=== PATIENT | female | born 1955 | race Caucasian/White ===

== ENCOUNTER → 2023-04-28 09:42 | Outpatient (CLI) | payer MEDICARE, SELFPAY ==
--- NOTE | ~2023-04-28 | MR_ITS ---
EXAMINATION: MR foot RT wo/w con DATE: 04/28/2023 10:37 and 05/03/2023 INDICATION: Lesion of the plantar nerve with pain between the third and fourth toes after walking on treadmill. TECHNIQUE: Magnetic resonance imaging (MRI) of the right fore/mid foot was performed without and with 12 mL Multihance intravenous contrast on 04/28/2023. Sequences included sagittal T1-weighted FSE, sag ittal fluid sensitive FSE STIR, coronal PD-weighted FS FSE, coronal T1-weighted FSE, axial PD-weighte d FS FSE, and axial PD-weighted FSE. The patient was requested to return for additional images of the mid and hindfoot which was performed without and with 12 mL Multihance intravenous contrast on 2022. Sequences included axial, sagittal and coronal T1-weighted FSE and T2-weighted FS FSE, axial T1 -weighted FS FSE and postcontrast axial, sagittal and coronal T1-weighted FS FSE. COMPARISON: None FINDINGS: Bone alignment is normal. No fracture, reactive edema or pathologic marrow replacing process. Joint s paces appear normal no joint effusions. Very small enhancing lesion with low signal intensity likely sclerotic margins at the plantar aspect of the head of the third metatarsal most likely a small erosi on with differential including focus of osteonecrosis. There is some mild soft tissue edema surroundi ng the head of the third metatarsal. No other erosions identified. The stabilizing ligaments at the m edial and lateral ankle, the Lisfranc ligament complex and the collateral ligament complex at the met atarsophalangeal and interphalangeal joints are normal. The flexor and extensor tendons are normal an d no abnormal masses or enhancing lesions identified along the course of the medial and lateral plant ar nerves other more distal branches including the plantar digital nerves. No Warren's neuroma. IMPRESSION: 1. Small enhancing lesion with suggestion of thin sclerotic margins at the plantar aspect of the head of the third metatarsal which could represent a chronic erosion such as in the setting of a crystall ine, inflammatory or less likely infectious etiology or small region of osteonecrosis. Reviewed, dictated and finalized at location A. IMPRESSION: 1. Small enhancing lesion with suggestion of thin sclerotic margins at the plan tar aspect of the head of the third metatarsal which could represent a chronic erosion such as in the setting of a crystalline, inflammatory or less likely in fectious etiology or small region of osteonecrosis.
== END ==
PROVIDERS: PCP Internal Medicine
DX: G57.61 Lesion of plantar nerve, right lower limb (principal)
CPT/HCPCS: 73720; A9577